=== PATIENT | female | born 1970 | race Caucasian/White ===

== ENCOUNTER 2018-08-31 10:40 | Emergency (ER) | payer OTHER ==
[2018-08-31] MEDS ORDERED: 0.9 % SODIUM CHLORIDE 1,000 ML IV ONE (10:59)
[2018-08-31] MEDS ORDERED: MULTIVIT INFUSN,ADULT 1,VIT K 10 ML VIAL IV ONE (10:59)
--- NOTE | 2018-08-31 11:00 | ED Physician Documentation ---
General Adult - HISTORIAN Historian: patient - HPI Stated Complaint: Not feeling well Chief Complaint: Weakness Additional Information: Patient is a 47-year-old female who presents to the ER with coming from [facility]. Patient states that she has been at [facility] for approx. 1 week for methamphetamine use 1/4 gram daily for 6 months and Klonopin #4 daily for a couple of months. She states that she has been thru withdraws in the pass but she just feels really fatigued. She does not like the program at [facility] and thinks she may go home. Onset: days ago Timing: still present Severity: mild Modifying Factors: decreased oral intake - ROS CONST: weakness EYES/ENT: none CVS/RESP: none GI/: none MS/SKIN/LYMPH: none NEURO/PSYCH: denies: headache, dizziness - PAST HX Past History: none Surgeries/Procedures: hysterectomy, other (plate right wrist) Immunizations: UTD Allergies/Adverse Reactions: Allergies Allergy/AdvReac Type Severity Reaction Status Date / Time No Known Allergies Allergy Verified 08/31/18 11:00 Home Medications: Ambulatory Orders Medication Instructions Recorded NK 08/31/18 - SOCIAL HX Smoking History: non-smoker Alcohol Use: occasionally Drug Use: methamphetamines - FAMILY HX Family History: No - VITAL SIGNS Vital Signs: Vital Signs Temp Pulse Resp BP Pulse Ox 97.2 F L 105 H 21 121/95 98 08/31/18 10:54 08/31/18 10:54 08/31/18 10:54 08/31/18 10:54 08/31/18 10:54 - REVIEWED ASSESSMENTS Nursing Assessment Reviewed: Yes Vitals Reviewed: Yes Progress - Progress Progress: Patient feels much better after 1 liter of NS with MVI ED Results Lab/Radiology - Orders Orders: ED Orders Category Date Time Status Place IV Lock 1T Care 08/31/18 10:59 Ordered CBC/PLATELET/DIFF Routine Lab 08/31/18 Ordered CMP Routine Lab 08/31/18 Ordered Multivit Infusn,Adult 1,Vit K [M.v.i. Adult] Med 08/31/18 10:59 Once 10 ml IV NOW ONE NORMAL SALINE @ 1000 MLS/HR ( 1000ml BOLUS) Med 08/31/18 10:59 Ordered 0.9 % Sodium Chloride [Normal Saline] 1,000 ml IV Q1H General Adult Physical Exam - PHYSICAL EXAM GENERAL APPEARANCE: no distress EENT: eye inspection normal, ENT inspection normal, pharynx normal, dry mucous membranes NECK: normal inspection, supple RESPIRATORY: no resp distress, breath sounds normal CVS: heart sounds normal, equal pulses, tachycardia ABDOMEN: soft, normal bowel sounds, non-tender BACK: normal inspection SKIN: warm/dry, pallor EXTREMITIES: non-tender, normal range of motion NEURO: oriented X3, CN's nml as tested, motor nml, sensation nml, mood/affect nml, cognition normal Discharge Clincal Impression: Dehydration Referrals: Primary Doctor,No [Primary Care Provider] - 2 Days Additional Instructions: Dehydration Increase fluid intake (no caffeine) Start taking a Woman's Multivitamin Daily Follow up with Primary Care Provider next week Methamphetamine Abuse Continue your journey to be substance free- you may experience weakness and fati torsten as your body continues to adjust with the changes. Condition: Good Disposition: 01 HOME, SELF-CARE Decision to Admit: NO Decision Time: 12:10
[2018-08-31 11:32] LABS: BASOPHILS % 0.5 (0.0-1.5); EOSINOPHILS % 1.8 % (0.0-6.8); MEAN CORPUSCULAR HEMOGLOBIN 29.4 pg (28.0-34.0); MONOCYTES % 3.1 % (0.0-11.0); NEUTROPHILS # 4.3 # k/uL (1.4-7.7)
[2018-08-31 11:39] LABS: eGFR (Non-African) > 60
[2018-08-31 12:19] VITALS: BP 118/74
== END 2018-08-31 12:16 | disposition home or self-care (01) ==
LOC: ED 10:40
DX: E86.0 Dehydration (principal)
CPT/HCPCS: 36415; 80053; 85025; 96360; 99283; 99284; J7030; S1016